=== PATIENT | male | born 1995 | race African-American/Black ===

== ENCOUNTER 2018-04-09 18:29 | Emergency (ER) | payer OTHER ==
[2018-04-09] MEDS: IBUPROFEN 800 MG TAB PO (19:56)
[2018-04-09] MEDS: ACETAMINOPHEN 325 MG TAB PO (19:56)
[2018-04-09] MEDS: NS 1,000 ML IV (19:56)
[2018-04-09 20:00] LABS: HEMATOCRIT 44.2 % (42.0-52.0); HEMOGLOBIN 15.2 g/dl (13.5-17.5); MEAN CORPUSCULAR HEMOGLOBIN 29.7 pg (27.0-33.0); MEAN CORPUSCULAR HGB CONC 34.4 g/dl (32.0-36.5); MEAN CORPUSCULAR VOLUME 86.5 fl (80.0-96.0); PLATELET COUNT, AUTOMATED 165 10^3/uL (150-450); RED BLOOD COUNT 5.11 10^6/uL (4.30-6.10); RED CELL DISTRIBUTION WIDTH 12.3 % (11.5-14.5); WHITE BLOOD COUNT 6.9 10^3/uL (4.0-10.0)
[2018-04-09 20:03] LABS: ADD MANUAL DIFFER YES; DIFF SLIDE NUMBER 178; POSITIVE MORPH POS FLAG
[2018-04-09 20:22] LABS: ATYPICAL LYMPH 15 % (0-5); BASOPHILS 1 % (0-4); LYMPHOCYTES 18 % (16-52); MONOCYTES 7 % (0-8); NEUTROPHILS 59 % (35-75); PLATELET ESTIMATE NORMAL (NORMAL)
[2018-04-09 20:28] LABS: ANION GAP 6 MEQ/L (8-16); BLOOD UREA NITROGEN 13 MG/DL (7-18); CALCIUM LEVEL 8.8 MG/DL (8.5-10.1); CARBON DIOXIDE LEVEL 31 MEQ/L (21-32); CHLORIDE LEVEL 102 MEQ/L (98-107); CREATININE FOR GFR 1.08 MG/DL (0.70-1.30); GLOMERULAR FILTRATION RATE > 60.0 (>60); GLUCOSE, FASTING 108 MG/DL (70-100); POTASSIUM SERUM 4.1 MEQ/L (3.5-5.1); SODIUM LEVEL 139 MEQ/L (136-145)
[2018-04-09] MEDS ORDERED: ISOVUE-370 76% 100ML VIAL (Q9967) As Ordered (20:35)
[2018-04-09 20:47] LABS: INFLUENZA A AMPLIFICATION NEGATIVE (NEGATIVE); INFLUENZA B AMPLIFICATION NEGATIVE (NEGATIVE)
== END 2018-04-09 21:45 | disposition home or self-care (01) ==
LOC: M ED 18:29
DX: J06.9 Acute upper respiratory infection, unspecified (principal); B34.9 Viral infection, unspecified; R94.31 Abnormal electrocardiogram [ECG] [EKG]; Z87.01 Personal history of pneumonia (recurrent); Z79.2 Long term (current) use of antibiotics
CPT/HCPCS: Q9967

== ENCOUNTER 2018-10-24 14:30 | Emergency (ER) | payer OTHER ==
[~2018-10-24] VITALS: Ht 170.2 cm; Wt 89.5 kg
[~2018-10-24 14:30] MED LIST: AUGM875T28 PO; AZIT-12 PO; PROAAER10 INH
[2018-10-24] MEDS ORDERED: NASA30TA8 PO (16:04)
[2018-10-24] MEDS ORDERED: SORE15LO (16:05)
[2018-10-24] MEDS ORDERED: predniSONE 20 MG TAB PO ONE (16:30)
[2018-10-24] MEDS ORDERED: ALBUTEROL SULFATE 2.5 MG/0.5 ML INH NEB SOLN NEB ONE (16:30)
--- NOTE | 2018-10-24 16:47 | REP ---
Chest two views HISTORY: Cough Comparison: 06/09/2017 The lungs are clear. The heart is normal in size. The pulmonary vasculature is normal in appearance. The bony structure is intact. IMPRESSION: No acute disease. Electronically Signed by Piyush Guillen MD 10/24/2018 04:39 P
[2018-10-24] MEDS ORDERED: PRED20TA PO (17:48)
[2018-10-24 17:57] VITALS: BP 143/92
--- NOTE | 2018-10-25 08:02 | ECGEPIP ---
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
== END 2018-10-24 17:58 | disposition home or self-care (01) ==
LOC: M ED 14:30
DX: J45.909 Unspecified asthma, uncomplicated (principal); R00.1 Bradycardia, unspecified; Z79.899 Other long term (current) drug therapy

== ENCOUNTER 2018-11-12 20:10 | Emergency (ER) | payer OTHER ==
[~2018-11-12] VITALS: Ht 170.2 cm; Wt 84.1 kg
[2018-11-12 20:10] VITALS: BP 138/80
[~2018-11-12 20:10] MED LIST changes: +NASA30TA8 PO; +PRED20TA PO; +SORE15LO
[2018-11-12] MEDS ORDERED: IBUP-1022 PO (21:04)
[2018-11-12] MEDS ORDERED: ROBA500T PO (21:04)
[2018-11-12] MEDS ORDERED: IBUPROFEN 600 MG TAB PO ONE (21:15)
[2018-11-12] MEDS ORDERED: METHOCARBAMOL 500 MG TAB PO ONE (21:15)
== END 2018-11-12 21:16 | disposition home or self-care (01) ==
LOC: M ED 20:10
DX: M62.830 Muscle spasm of back (principal)